=== PATIENT | female | born 1980 | race Caucasian/White ===

== ENCOUNTER 2020-07-28 19:18 | Emergency (ER) | payer OTHER ==
[~2020-07-28] VITALS: Ht 170.2 cm; Wt 100.0 kg
[2020-07-28 19:18] VITALS: BP 131/83
--- NOTE | 2020-07-28 19:24 | PHYS DOC ---
Past History Past Surgical History: Hysterectomy General Adult HPI: HPI: ".. I was getting down on the floor.. and was supporting my self with my arms.. and all sudden heard a pop.. and my Lt shoulder gave out.. and started hurting really bad..." Patient is a 40 year old female who presents with above hx and complaints of shoulder injury. Patient states pain is in left deltoid area and seems to radiate down her arms to fingers 4 and 5. Patient does have sensation in deltoid area. Patient rates pain as 9 out of 10 patient denies previous injury to the shoulder. Patient has been a able to hold arm in extension without assistance. Range of motion is too painful to complete. Patient is right-hand dominant. No recent travel. No severe ill contacts. Pt. follows with [facility] for care. Review of Systems: Review of Systems: Constitutional: Denies fever or chills Eyes: Denies change in visual acuity HENT: Denies nasal congestion or sore throat Respiratory: Denies cough or shortness of breath Cardiovascular: Denies chest pain or edema GI: Denies abdominal pain, nausea, vomiting, bloody stools or diarrhea : Denies dysuria Musculoskeletal: Complains of left shoulder pain Integument: Denies rash Neurologic: Denies headache, focal weakness or sensory changes Endocrine: Denies polyuria or polydipsia Lymphatic: Denies swollen glands Psychiatric: Denies depression or anxiety Family History: Family History: Noncontributory Current Medications: Current Meds: See nursing for home meds Allergies: Allergies: No known drug allergies Physical Exam: PE: Constitutional: in acute distress, non-toxic appearance. [] HENT: Normocephalic, atraumatic, bilateral external ears normal, oropharynx m oist, no oral exudates, nose normal. [] Eyes: PERRLA, EOMI, conjunctiva normal, no discharge. [] Neck: Normal range of motion, no tenderness, supple, no stridor. [] Cardiovascular:Heart rate regular rhythm, no murmur [] Lungs & Thorax: Bilateral breath sounds equal apex auscultation [] Abdomen: Bowel sounds normal, soft, no tenderness, no masses, no pulsatile masses. Old surgery scars Skin: Warm, dry, no erythema, no rash. [] Back: No tenderness, no CVA tenderness. [] Extremities: No tenderness, no cyanosis, no clubbing, ROM intact, no edema. [] Except findings in left shoulder as per HPI Neurologic: Alert and oriented X 3, normal motor function, normal sensory function, no focal deficits noted. [] Psychologic: Affect anxious, judgement normal, mood normal. [] EKG: EKG: [] Radiology/Procedures: Radiology/Procedures: [place] [address] IMAGING REPORT Signed PATIENT: RANI BERNSTEINUNT: [id number] : 1980 LOCATION: ER AGE: 40 SEX: F EXAM STATUS: REG ER ORD. PHYSICIAN: CHEYENNE GAYTAN MD REASON: shoulder upper Lt clavicle pain PROCEDURE: CHEST AP ONLY XR CHEST 1V History: Reason: shoulder upper Lt clavicle pain / Spl. Instructions: / History: Comparison: March 09, 2020 Findings: No consolidation or pleural effusion. Normal heart size. No pneumothorax. Impression: 1. No acute cardiopulmonary process. Electronically signed by: Dashawn Hines DO (07/28/2020 7:49 PM) [facility] DICTATED AND SIGNED BY: DASHAWN HINES DO DATE: 07/28/201947 CC: CHEYENNE GAYTAN MD; ANTONELLACELSOSHERON Rei ROMERO ~MTH0 0 [][address] [address] IMAGING REPORT Signed PATIENT: RANI BERNSTEINUNT: [id number] : 1980 LOCATION: ER AGE: 40 SEX: F EXAM STATUS: REG ER ORD. PHYSICIAN: CHEYENNE GAYTAN MD REASON: shoulder upper Lt clavicle pain PROCEDURE: SHOULDER 2+V LEFT XR SHOULDER_LEFT 2+ VIEWS History: Reason: shoulder upper Lt clavicle pain / Spl. Instructions: / History: Technique: 3 views left shoulder. Comparison: None. Findings: Normal alignment of the left glenohumeral and acromioclavicular joints. No fracture. Soft tissues unremarkable. Impression: 1. No acute osseous abnormality. Electronically signed by: Dashawn Hines DO (07/28/2020 7:48 PM) [facility] DICTATED AND SIGNED BY: DASHAWN HINES DO DATE: 07/28/201945 CC: CHEYENNE GAYTAN MD; SHERON MARCOS APRN ~MTH0 0 Heart Score: C/O Chest Pain: N/A Risk Factors: Risk Factors: DM, Current or recent (<one month) smoker, HTN, HLP, family history of CAD, obesity. Risk Scores: Score 0 - 3: 2.5% MACE over next 6 weeks - Discharge Home Score 4 - 6: 20.3% MACE over next 6 weeks - Admit for Clinical Observation Score 7 - 10: 72.7% MACE over next 6 weeks - Early Invasive Strategies Course & Med Decision Making: Course & Med Decision Making Pertinent Labs and Imaging studies reviewed. (See chart for details) Patient use ice as needed. Wear sling. Do passive range of motion at least 4 times a day. Follow-up with primary care. Follow-up with Ortho. Tylenol and ibuprofen for pain. For pain may take Vicoprofen. Impression: 1.. Left rotator cuff tear/injury [] Dragon Disclaimer: Dragon Disclaimer: This electronic medical record was generated, in whole or in part, using a voice recognition dictation system. Departure Departure: Referrals: SHERON MARCOS APRN (PCP) Scripts Hydrocodone/Ibuprofen (HYDROCODONE-IBUPROFEN 7.5-200 ) 1 Each Tablet 1 TAB PO PRN Q6HRS PRN for PAIN, #30 TAB 0 Refills Prov: CHEYENNE GAYTAN MD 07/28/20 Dragon Disclaimer This chart was dictated in whole or in part using Voice Recognition software in a busy, high-work load, and often noisy Emergency Department environment. It may contain unintended and wholly unrecognized errors or omissions. CHEYENNE GAYTAN MD Jul 28, 2020 19:24
[2020-07-28] MEDS: MORPHINE SULFATE 10 MG/ML SYRINGE. SQ ONE (19:45)
--- NOTE | 2020-07-28 19:50 | RAD ---
XR SHOULDER_LEFT 2+ VIEWS History: Reason: shoulder upper Lt clavicle pain / Spl. Instructions: / History: Technique: 3 views left shoulder. Comparison: None. Findings: Normal alignment of the left glenohumeral and acromioclavicular joints. No fracture. Soft tissues unr emarkable. Impression: 1. No acute osseous abnormality. Electronically signed by: Dashawn Hines DO (07/28/2020 7:48 PM) [facility]
--- NOTE | 2020-07-28 19:52 | RAD ---
XR CHEST 1V History: Reason: shoulder upper Lt clavicle pain / Spl. Instructions: / History: Comparison: March 09, 2020 Findings: No consolidation or pleural effusion. Normal heart size. No pneumothorax. Impression: 1. No acute cardiopulmonary process. Electronically signed by: Dashawn Hines DO (07/28/2020 7:49 PM) [facility]
[2020-07-28] MEDS: KETOROLAC 60 MG/2 ML VIAL. IM ONE (20:07)
[2020-07-28] MEDS ORDERED: HYDR-1179 PO (20:15)
== END 2020-07-28 20:25 | disposition home or self-care (01) ==
LOC: ER 19:18
DX: S46.012A Strain of muscle(s) and tendon(s) of the rotator cuff of left shoulder, initial encounter (principal); X50.9XXA Other and unspecified overexertion or strenuous movements or postures, initial encounter; Y93.89 Activity, other specified; Y92.89 Other specified places as the place of occurrence of the external cause; Y99.8 Other external cause status
CPT/HCPCS: 71045; 73030; 96372; 99284; J1885; J2270